=== PATIENT | male | born 1960 | race African-American/Black ===

== ENCOUNTER 2019-03-03 09:24 | Inpatient (IN) | payer MEDICAID ==
[~2019-03-03] VITALS: Ht 175.3 cm; Wt 98.0 kg
[~2019-03-03 09:24] MED LIST: PHEN100C4 PO
[2019-03-03 10:40] LABS: BASOPHILS % 0.3 % (0.0-2.0); EOSINOPHILS % 2.6 % (0.0-5.0); HEMATOCRIT. 37.7 % (42.0-52.0); HEMOGLOBIN. 12.4 g/dL (14.0-18.0); LYMPHOCYTES % 11.9 % (20.0-50.0); MEAN CORPUSCULAR HEMOGLOBIN 30.9 pg (28.0-32.0); MEAN CORPUSCULAR VOLUME 93.5 fL (80.0-94.0); MEAN PLATELET VOLUME 9.5 fl (7.4-10.4); MONOCYTES % 6.6 % (2.0-8.0); NEUTROPHILS % 78.6 % (40.0-76.0); PLATELET 208 x1000/uL (130-400); RED BLOOD CELL COUNT 4.03 mill/uL (4.7-6.1); RED CELL DISTRIBUTION WIDTH 12.4 % (11.6-14.6)
[2019-03-03 10:46] LABS: CHLORIDE 104 mEq/L (98-107)
[2019-03-03 10:48] LABS: INR 1.1; PROTHROMBIN TIME 10.8 sec (9.6-11.0)
[2019-03-03] MEDS ORDERED: ONDANSETRON HCL 4MG/2ML INJ IV STA (11:02)
[2019-03-03] MEDS ORDERED: MORPHINE SULFATE 4 MG/ML CPJ (NOT FOR IM USE) IV STA (11:02)
[2019-03-03] MEDS ORDERED: POTASSIUM CHLORIDE 20MEQ TABLET SR PO ONE (11:30)
[2019-03-03] MEDS ORDERED: IOHEXOL-350 100 ML BOTTLE ONE (12:50)
[2019-03-03] MEDS ORDERED: ENOXAPARIN 40MG/0.4ML SYR SUBCUT ONE (14:00)
[2019-03-03] MEDS ORDERED: HYDROCODONE/ACETAMINOPHEN 5/325MG TABLET PO PRN (14:00)
[2019-03-03 15:30] VITALS: BP 150/64
[2019-03-03 15:51] LABS: *BARBITURATES SCREEN URINE NEGATIVE (NEGATIVE); *BENZODIAZEPINES SCREEN URINE NEGATIVE (NEGATIVE); *COCAINE SCREEN URINE PRESUMTIVE POSITIVE (NEGATIVE); METHADONE URINE SCREEN NEGATIVE (NEGATIVE); OPIATES URINE SCREEN PRESUMTIVE POSITIVE (NEGATIVE)
[2019-03-03 15:52] LABS: *AMPHETAMINES SCREEN URINE PRESUMTIVE POSITIVE (NEGATIVE); CANNABINOID URINE SCREEN PRESUMTIVE POSITIVE (NEGATIVE); PHENCYCLIDINE URINE SCREEN NEGATIVE (NEGATIVE)
[2019-03-03] MEDS: BLOOD SUGAR DIAGNOSTIC STRIP TEST SCH ×2 (17:10→21:03)
[2019-03-03] MEDS ORDERED: ATOR-2 PO (17:21)
[2019-03-03] MEDS ORDERED: ASPI-1159 PO (17:21)
[2019-03-03] MEDS ORDERED: LISI40TA4 PO (17:21)
[2019-03-03] MEDS ORDERED: GABA-290 PO (17:21)
[2019-03-03] MEDS ORDERED: BUPR300T54 PO (17:21)
[2019-03-03] MEDS ORDERED: METF-416 PO (17:21)
[2019-03-03] MEDS ORDERED: HYDR-4009 PO (17:21)
[2019-03-03] MEDS ORDERED: PIOG45TA18 PO (17:21)
[2019-03-03] MEDS ORDERED: CYCL10TA7 PO (17:21)
[2019-03-03] MEDS: ENOXAPARIN 30MG/0.3ML SYR SUBCUT SCH (17:41)
[2019-03-03] MEDS: METOPROLOL TARTRATE 25MG TABLET PO SCH (17:42)
[2019-03-03] MEDS: LOSARTAN POTASSIUM 25 MG TABLET PO SCH (17:42)
[2019-03-03 20:00] VITALS: BP 136/71
[2019-03-03] MEDS ORDERED: DEXTROSE 50% WATER 50ML SYRINGE IV PRN (20:00)
[2019-03-03] MEDS ORDERED: MAGNESIUM 2 G PREMIX 50 ML IV SCH (21:00)
[2019-03-03] MEDS ORDERED: INSULIN LISPRO 100 UNITS/ML SUBCUT SCH (21:00)
[2019-03-03] MEDS ORDERED: ATORVASTATIN CALCIUM 20MG TABLET PO SCH (21:00)
[2019-03-03] MEDS: AMLODIPINE 5MG TABLET PO SCH (21:09)
[2019-03-03] MEDS: INSULIN LISPRO 100 UNITS/ML SUBCUT SCH (21:10)
[2019-03-03] MEDS ORDERED: INSULIN GLARGINE UD 100 UNITS/ML SYR SUBCUT SCH (22:00)
[2019-03-04] VITALS: BP 119/86
[2019-03-04 04:00] VITALS: BP 150/83
[2019-03-04 06:15] LABS: CHLORIDE 106 mEq/L (98-107)
[2019-03-04 06:16] LABS: BASOPHILS % 0.6 % (0.0-2.0); EOSINOPHILS % 2.9 % (0.0-5.0); HEMATOCRIT. 34.5 % (42.0-52.0); HEMOGLOBIN. 11.5 g/dL (14.0-18.0); LYMPHOCYTES % 20.5 % (20.0-50.0); MEAN CORPUSCULAR HEMOGLOBIN 31.2 pg (28.0-32.0); MEAN CORPUSCULAR VOLUME 93.9 fL (80.0-94.0); MEAN PLATELET VOLUME 9.6 fl (7.4-10.4); MONOCYTES % 8.7 % (2.0-8.0); NEUTROPHILS % 67.3 % (40.0-76.0); PLATELET 209 x1000/uL (130-400); RED BLOOD CELL COUNT 3.68 mill/uL (4.7-6.1); RED CELL DISTRIBUTION WIDTH 12.8 % (11.6-14.6)
[2019-03-04 06:22] LABS: LDL CHOLESTEROL 49 mg/dL (5-100)
[2019-03-04 06:27] LABS: HDL CHOLESTEROL 31 mg/dL (40-59)
[2019-03-04] MEDS: INSULIN LISPRO 100 UNITS/ML SUBCUT SCH ×2 (07:27→12:34)
[2019-03-04] MEDS: BLOOD SUGAR DIAGNOSTIC STRIP TEST SCH ×2 (07:27→11:54)
[2019-03-04] MEDS ORDERED: METFORMIN HCL 500MG TABLET PO SCH (07:40)
[2019-03-04 08:00] VITALS: BP 132/82
[2019-03-04] MEDS: LOSARTAN POTASSIUM 25 MG TABLET PO SCH (08:52)
[2019-03-04] MEDS: AMLODIPINE 5MG TABLET PO SCH (08:53)
[2019-03-04] MEDS: METOPROLOL TARTRATE 25MG TABLET PO SCH (08:53)
[2019-03-04] MEDS: ENOXAPARIN 30MG/0.3ML SYR SUBCUT SCH (08:54)
[2019-03-04] MEDS ORDERED: ASPIRIN 325MG EC TABLET PO SCH (09:00)
[2019-03-04 12:00] VITALS: BP 123/52
[2019-03-04 13:41] VITALS: BP 123/52
== END 2019-03-04 15:40 | disposition home or self-care (01) | DRG 198 ==
LOC: ER 09:24 → 8WST 12:41 → EDBEDREQTM 12:44 → EDBEDREQ 12:44 → SUPCPDRO 13:28 → ENRESERV 14:04
PROVIDERS: ADMIT Internal Medicine; ATTEND Internal Medicine
DX: R07.89 Other chest pain (principal); I25.10 Atherosclerotic heart disease of native coronary artery without angina pectoris; I11.0 Hypertensive heart disease with heart failure; E11.65 Type 2 diabetes mellitus with hyperglycemia; I50.9 Heart failure, unspecified; E87.6 Hypokalemia; R74.0 Nonspecific elevation of levels of transaminase and lactic acid dehydrogenase [LDH]; F19.10 Other psychoactive substance abuse, uncomplicated; D64.9 Anemia, unspecified; Z79.84 Long term (current) use of oral hypoglycemic drugs; I25.2 Old myocardial infarction; Z82.49 Family history of ischemic heart disease and other diseases of the circulatory system; Z83.3 Family history of diabetes mellitus; Z88.8 Allergy status to other drugs, medicaments and biological substances; Z79.899 Other long term (current) drug therapy
CPT/HCPCS: 36415; 71045; 71275; 80048; 80061; 80305; 82962; 83036; 83735; 83880; 84484; 85379; 93005; 93306; 96374; 96375; 99285; J1650; J1815; J2270; J2405; J3475; J7050; Q9967